=== PATIENT | male | born 1995 | race Caucasian/White ===

== ENCOUNTER 2023-03-13 13:15 | Outpatient (RCR) | payer OTHER, SELFPAY ==
--- NOTE | 2022-12-19 15:30 | OT.OP.EVAL ---
Visit Care Team Role Provider Type Akilah Calvo DO Attending Provider Non-Staff Primary Care Provider Referring Provider Specialty: Medical Address: [address] [place] [address], [id number] Email: Occupational Therapy Initial Evaluation OT Outpatient Adult Evaluation Start: 12/20/22 08:01 Freq: Status: Active Protocol: Document 12/19/22 15:30 AMS (Rec: 12/20/22 08:24 AMS [id number]) General Information - Adult Visit Start Time 12:15 Visit Stop Time 12:45 Total Visit Minutes 30 Treatment Setting Outpatient Care Note Type Initial Evaluation Referring Physician Akilah Calvo MD Precautions Bilateral wrist pain; exacerbated by long work hours on the computer & using telephone for conference calls Identification Confirmed Yes Identification Confirmed By Self Goals Residential Goals 1. Glenn will be modified independent with execution of home exercise program utilizing provided written and visual instructions from therapist. 2. Glenn will be able to verbally identify 2 to 3 different conservative methods of treatment for pain management of the distal UEs. 3. Glenn will be able to verbalize 100% of joint protection principles with referencing of provided materials as needed. Assessment/Plan Treatment Assessment Glenn is a 27 year-old right hand dominant male referred to outpatient OT secondary to bilateral wrist pain with symptoms that are exacerbated by long work hours on the computer & using telephone for conference calls. 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 Glenn is using heat to manage symptoms and is taking hourly breaks with school work tasks (3+ hours school work) that are completed on his laptop while seated on his couch or bed and /or at a workstation (that can be ergonomic equipped w/ gel pad or riser). Glenn does ROM stretches to maintain flexibility and is strengthening wrists via wrist ext and forearm supination/ pronation w/ DB. (-) use of splints. Medical history is significant for back pain, depression, headaches, hearing problems, neck pain, and neuropathy. QuickDASH UE Outcome Measure Score = 22.73; QuickDASH Work Module Score = 25.00; QuickDASH Sports/Performing Arts Module Score = 56.25 (he plays guitar and piano). He indicated 4 out of 10 on the pain scale relative to elbows --> hands distally, neck, upper back and 6 out of 10 mid back. On the hand/wrist Pain Assessment Grid, Glenn indicated 3 out of 10 relative to ulnar dorsal/volar surfaces of bilateral hands and dorsal/volar surfaces of bilateral wrists. 0-70 degrees active R wrist ext; 0-70 degrees active L wrist ext; 0- 75 degrees active R wrist flex ; 0-75 degrees active L wrist flex; 0-30 degrees active R UD ; 0-30 degrees active L UD; 0- [address]; 0-15 degrees active R UD. (-) signs of intrinsic tightness. (-) posturing of R or L little finger into abduction/(-) clawing of 4th or 5th digits; (+) flexion of bilateral thumbs w/ lateral pinch strength testing; report of mild change in sensation w/ B elbows in flexion, however, main symptoms are presenting distally. Denial of nerve conduction study; (-) sx not impacting sleep. Good strength w/ 5th digit adduction bilaterally; good add/abd strength of 4th and 5th digits bilaterally. 5/5 MMT of bilateral wrists w/ wrist flex , ext, RD, and UD. No c/o pain /discomfort w/ cheese cutter/pinch strength testing. 110# w/ R cheese cutter (within 1 SD below the mean) and 120# w/ L cheese cutter ( within 1 SD above the mean) w/ dynamometer II strength testing; 22.0# R lateral pinch (within 1 SD below the mean) vs 22.5# L lateral pinch ( within 1 SD below the mean); 23.0# R 3-jaw pinch (within 1 SD below the mean) and 19.0# L 3-jaw pinch (> 1 SD below the mean); 13.0# R tip pinch (> 1 SD below the mean) and 12.0# L tip pinch (> 1 SD below the mean). Patient presents with good strength of bilateral wrists in all directions; he does have some increased mobility ( hypermobility) which likely impacts the stability of the joints of the distal UEs/ wrists. He has slightly decreased strength bilaterally w/ pinch testing, although, no posturing of the 4th or 5th digits are observed. Pain is a factor that is impacting his ability to complete daily tasks in the work environment, as well as completion of school work tasks that are primarily completed on a laptop. He is receiving treatment at [facility] for his neck/back pain which likely impacts his posture and subsequent ability to position his distal UEs comfortably at work and/or for school. Outpatient OT is recommended to explore conservative measures to address pain/ discomfort, provide education re: joint protection/posture/ AE/and modifications, and to develop a HEP to address pinch weaknesses. Length of treatment (weeks) 4 Plan of Care Start Date 12/19/22 Plan of Care End Date 01/16/23 Treatment Frequency Once a Week Therapeutic Contents Active Range of Motion, Adaptive Equipment Education, Client Education,Functional Activities,Home Exercise Program,Joint Protection, Manual Therapy,Education, Neurodevelopment Treatment, Neuromuscular Re-Education, Self-Care,Modalities Modalities As Needed,As Prescribed Types of Modalities Ultrasound Additional Types of Modalities Ice/Contrast baths
--- NOTE | 2023-01-03 14:55 | OT.OP.TRT ---
Visit Care Team Role Provider Type Akilah Calvo DO Attending Provider Non-Staff Primary Care Provider Referring Provider Specialty: Medical Address: [address] [place] [address], [id number] Email: Occupational Therapy Treatment Note OT Outpatient Treatment Note - Adult Start: 12/20/22 08:01 Freq: Status: Active Protocol: Document 01/03/23 14:36 AMS (Rec: 01/03/23 14:55 AMS [id number]) OT Outpatient Adult Treatment Note Visit Information Visit Number 08/22 Plan of Care Dates 12/19/22 - 01/16/23 Insurance Information 12 OT visits auth Setting Treatment Setting Outpatient Care Visit Type Note Type Treatment Note General Information General Information Glenn is a 27 year-old right hand dominant male referred to outpatient OT secondary to bilateral wrist pain with symptoms that are exacerbated by long work hours on the computer & using telephone for conference calls. 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 Glenn is using heat to manage symptoms and is taking hourly breaks with school work tasks (3+ hours school work) that are completed on his laptop while seated on his couch or bed and /or at a workstation (that can be ergonomic equipped w/ gel pad or riser). Glenn does ROM stretches to maintain flexibility and is strengthening wrists via wrist ext and forearm supination/ pronation w/ DB. (-) use of splints. Medical history is significant for back pain, depression, headaches, hearing problems, neck pain, and neuropathy. - Subjective Identification Type Name Identification Reconciled With Medical Record Observations Pain reported ulnarly of bilateral wrists. - Objective Objective Measurements Please refer to below for progress towards meeting established OT goals: Nursing Home Goals 1. Glenn will be modified independent with execution of home exercise program utilizing provided written and visual instructions from therapist. 2. Glenn will be able to verbally identify 2 to 3 different conservative methods of treatment for pain management of the distal UEs. 3. Glenn will be able to verbalize 100% of joint protection principles with referencing of provided materials as needed. - - Assessment Assessment of Improvement Crepitus noted bilaterally R > L w/ frequent self-directed rolling of B wrists (R > L). Tightness noted Right volar radial compartment compared to L. Pain/discomfort with active weight bearing w/ circumduction in either direction R > L. Stabilizes right wrist w/ contralateral hand if able to do so w/ work tasks, e.g., CPR compressions. Performs push-ups with hands positioned in fists and/or utilizing dumbbells. Likely right radial carpal instability; increased available ROM in joints of the hand(s), thus, laxity may be a factor. Reported intermittent shooting pain proximal and distal secondary to application of US to address any inflammation to volar radial R wrist x 8 minutes, 20% duty cycle, 2.2 w /cm2. Given referring diagnoses may want to trial positioning of elbows in flexion for 30 to 60 seconds to determine if positioning reproduces symptoms. Limited by profession in ability to wear orthoses/splints/utilize kinesiotape. Will look to improve upon stability of wrist/tightness noted in volar radial compartment. Home Exercise Program 01/03/23 = stretching of radial volar compartment of wrist; passive wrist extension combined w/ elbow ext, forearm supination, and UD. passive UD w/ hand positioned flat on TT. rec hold of 20 to 30 sec per exercise. Stability exercise w/ ball forward <-> backwards, left <-> right w/ avoidance of circumduction given exacerbation of sx. - Plan Therapy Recommendations Continue with Current Program, Advance per Rehabilitation Protocol
--- NOTE | 2023-01-07 14:03 | OT.OP.TRT ---
Visit Care Team Role Provider Type Akilah Calvo DO Attending Provider Non-Staff Primary Care Provider Referring Provider Specialty: Medical Address: [address] [place] [address], [id number] Email: Occupational Therapy Treatment Note OT Outpatient Treatment Note - Adult Start: 12/20/22 08:01 Freq: Status: Active Protocol: Document 01/07/23 13:52 AMS (Rec: 01/07/23 14:03 AMS [id number]) OT Outpatient Adult Treatment Note Session Time Visit Start Time 08:30 Visit Stop Time 09:15 Total Visit Minutes 45 Visit Information Visit Number 09/22 Plan of Care Dates 12/19/22 - 01/16/23 Insurance Information 12 OT visits auth Setting Treatment Setting Outpatient Care Visit Type Note Type Treatment Note General Information General Information Glenn is a 27 year-old right hand dominant male referred to outpatient OT secondary to bilateral wrist pain with symptoms that are exacerbated by long work hours on the computer & using telephone for conference calls. 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 Glenn is using heat to manage symptoms and is taking hourly breaks with school work tasks (3+ hours school work) that are completed on his laptop while seated on his couch or bed and /or at a workstation (that can be ergonomic equipped w/ gel pad or riser). Glenn does ROM stretches to maintain flexibility and is strengthening wrists via wrist ext and forearm supination/ pronation w/ DB. (-) use of splints. Medical history is significant for back pain, depression, headaches, hearing problems, neck pain, and neuropathy. - Subjective Identification Type Name Identification Reconciled With Medical Record Observations Report of pain in distal UEs at night/when asleep; change in sensation occurs primarily in the 4th and 5th digits and approximately 2 to 3 inches proximal to ulnar side of wrist. - Objective Objective Measurements Please refer to below for progress towards meeting established OT goals: Alf Goals 1. Glenn will be modified independent with execution of home exercise program utilizing provided written and visual instructions from therapist. 2. Glenn will be able to verbally identify 2 to 3 different conservative methods of treatment for pain management of the distal UEs. 3. Glenn will be able to verbalize 100% of joint protection principles with referencing of provided materials as needed. - Exercises 3 Descriptor Supination <-> Pronation weighted ball catch and throw. R 2.2#. 2 x 10. Discomfort primarily reported w/ forearm in pronation. Toss and catch w/ wrist in extension. R 3.3# 2 x 10. 2 Descriptor Wrist extension w/ weighted spherical ball. R 3.3#. 2 x 10 . L 4.4#. 2 x 10. Proximal forearm supported. Wrist arc. Forearm pronation w / proximal forearm supported. R 3.3#. 2 x 10. L 4.4#. 2 x 10 . 1 Descriptor Angled trampoline. 3.3#. 2 x 10. Overhand throw. Cushioning occurs w/ impact/proximal compensation. Able to execute w/ L hand without symptoms. Angled trampoline. 2.2#. 2 x 10. Overhand throw. Mild discomfort. - Assessment Assessment of Improvement Crepitus noted bilaterally R > L w/ frequent self-directed rolling of B wrists (R > L). Pain/discomfort with active weight bearing w/ circumduction in either direction R > L. R radial carpal instability; increased available ROM in joints of the hand(s), thus, laxity may be a factor. Discomfort reported primarily w/ dynamic exercise w/ forearm in pronation w/ dynamic exercises. Report of changein sensation in primarily the 4th and 5th digits of the hand w/ proximal presentation 2 to 3 inches of the ulnar side of the wrist/ forearm. Change in sensation is impacting sleep. Reports that he will be getting botox in the neck . Will look to improve upon stability of wrist. Home Exercise Program 01/03/23 = stretching of radial volar compartment of wrist; passive wrist extension combined w/ elbow ext, forearm supination, and UD. passive UD w/ hand positioned flat on TT. rec hold of 20 to 30 sec per exercise. Stability exercise w/ ball forward <-> backwards, left <-> right w/ avoidance of circumduction given exacerbation of sx. - Plan Therapy Recommendations Continue with Current Program, Advance per Rehabilitation Protocol
--- NOTE | 2023-01-23 16:00 | OT.OPPN ---
Current Diagnoses Lesion of ulnar nerve, unspecified upper limb (01/23/23) Pain in right wrist (01/23/23) Pain in left wrist (01/23/23) Pain in arm, unspecified (01/23/23) Pain in unspecified hand (01/23/23) OT Progress Note OT Outpatient Treatment Note - Adult Start: 12/20/22 08:01 Freq: Status: Active Protocol: Document 01/23/23 16:00 AMS (Rec: 01/28/23 14:14 AMS [id number]) OT Outpatient Adult Treatment Note Session Time Visit Start Time 13:15 Visit Stop Time 14:00 Total Visit Minutes 45 Visit Information Visit Number 3 Plan of Care Dates 01/16/23 - 02/27/23 Insurance Information 12 OT visits auth Setting Treatment Setting Outpatient Care Visit Type Note Type Progress Note General Information General Information Glenn is a 27 year-old right hand dominant male referred to outpatient OT secondary to bilateral wrist pain with symptoms that are exacerbated by long work hours on the computer & using telephone for conference calls. 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 Glenn is using heat to manage symptoms and is taking hourly breaks with school work tasks (3+ hours school work) that are completed on his laptop while seated on his couch or bed and /or at a workstation (that can be ergonomic equipped w/ gel pad or riser). Glenn does ROM stretches to maintain flexibility and is strengthening wrists via wrist ext and forearm supination/ pronation w/ DB. (-) use of splints. Medical history is significant for back pain, depression, headaches, hearing problems, neck pain, and neuropathy. - Subjective Identification Type Name Identification Reconciled With Medical Record Observations No new complaints. Reports executing manual self- distraction bilaterally of both wrists and utilizing contralateral hand to stabilize other wrist. - Objective Objective Measurements Please refer to below for progress towards meeting established OT goals: Senior Care Goals 1. Glenn will be modified independent with execution of home exercise program utilizing provided written and visual instructions from therapist. 01/23/23 = 75% met 2. Glenn will be able to verbalize 100% of joint protection principles with referencing of provided materials as needed. 01/23/23 = 75% met GOALS MET Able to verbally identify 2 to 3 different conservative methods of treatment for pain management of the distal UEs. *MET 01/23/23; use of compensatory/modification techniques as well as use of available modalities in the home: use of ice; use of self -mobilization via distraction; distal UE PROM; report of contralateral wrist stabilization when required to exert force thru palm; - Exercises 3 Descriptor Supination <-> Pronation weighted ball catch and throw. R 2.2#. 2 x 10. Discomfort primarily reported w/ forearm in pronation. Toss and catch w/ wrist in extension. R 3.3# 2 x 10. 2 Descriptor Wrist extension w/ weighted spherical ball. R 4.4#. 2 x 10 . L 4.4#. 2 x 10. Proximal forearm supported. Wrist arc. Forearm pronation w / proximal forearm supported. R 4.4#. 2 x 10. L 4.4#. 2 x 10 . 1 Descriptor Angled trampoline. 4.4#. 2 x 10. Overhand throw. Cushioning occurs w/ impact/proximal compensation. Able to execute w/ L hand without symptoms. - Assessment Assessment of Improvement Patient has reported decline in pain/discomfort symptoms of wrists bilaterally; this could be attributed to reduction/participation in activities that are frequently aggravating to the wrists over the last couple of weeks per patient. Patient is executing distal UE PROM, utilizing self-mobs/wrist distraction techniques, and using contralateral hand to support wrist in which force is being exerted through. Patient is aware of importance of maintaining wrist in neutral w/ lifting and/or when executing push-ups (in which he frequently completes utilizing fists). Creptius is presenting bilaterally in wrists w/ observed active circumduction of wrists reported by patient to relieve stiffness and/or discomfort. Decreased stability of radial side of wrists noted (R > L) w / discomfort w/ proprioceptive exercises w/ shifting weight to radial side of the wrist w/ palm flat on unstable surface . Patient reportedly recently received botox to the neck and is being closely followed by . Patient is unable to wear orthotics and/or use kinesiotape to provide additional stability to the wrists based on profession. However, this may be an option when patient is not at work. Continued outpatient OT is recommended to determine if stability of wrist(s) can be obtained. Home Exercise Program 01/03/23 = stretching of radial volar compartment of wrist; passive wrist extension combined w/ elbow ext, forearm supination, and UD. passive UD w/ hand positioned flat on TT. rec hold of 20 to 30 sec per exercise. Stability exercise w/ ball forward <-> backwards, left <-> right w/ avoidance of circumduction given exacerbation of sx. - Plan Therapy Recommendations Continue with Current Program, Advance per Rehabilitation Protocol Comment 6 weeks Comment 1 x a week vs 1 x every other week Therapeutic Contents Active Range of Motion, Adaptive Equipment Education, Client Education,Cognitive Skills Development,Functional Activities,Home Exercise Program,Joint Protection, Manual Therapy,Education,Self- Care,Therapeutic Activities, Therapeutic Exercises, Modalities Modalities As Needed,As Prescribed Additional Types of Modalities Ultrasound/Heat/Ice/Contrast baths/Paraffin bath If you are in agreement with this Plan of Care, please return a signed and dated copy. I have reviewed this Plan of Care and certify that the skilled therapy services above are required to meet the patient?s needs. Physician Signature Date Printed Name and Credentials Clinical Instructor Signature Printed Name and Credentials
--- NOTE | 2023-02-06 15:45 | OT.OP.TRT ---
Visit Care Team Role Provider Type Akilah Calvo DO Attending Provider Non-Staff Primary Care Provider Referring Provider Specialty: Medical Address: [address] [place] [address], [id number] Email: Occupational Therapy Treatment Note OT Outpatient Treatment Note - Adult Start: 12/20/22 08:01 Freq: Status: Active Protocol: Document 02/06/23 16:00 AMS (Rec: 02/07/23 11:34 AMS [id number]) OT Outpatient Adult Treatment Note Session Time Visit Start Time 13:15 Visit Stop Time 14:00 Total Visit Minutes 45 Visit Information Visit Number 11/[id number] Plan of Care Dates 01/16/23 - 02/27/23 Insurance Information 12 OT visits auth Setting Treatment Setting Outpatient Care Visit Type Note Type Treatment Note General Information General Information Glenn is a 27 year-old right hand dominant male referred to outpatient OT secondary to bilateral wrist pain with symptoms that are exacerbated by long work hours on the computer & using telephone for conference calls. 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 Glenn is using heat to manage symptoms and is taking hourly breaks with school work tasks (3+ hours school work) that are completed on his laptop while seated on his couch or bed and /or at a workstation (that can be ergonomic equipped w/ gel pad or riser). Glenn does ROM stretches to maintain flexibility and is strengthening wrists via wrist ext and forearm supination/ pronation w/ DB. (-) use of splints. Medical history is significant for back pain, depression, headaches, hearing problems, neck pain, and neuropathy. - Subjective Identification Type Name Identification Reconciled With Medical Record Observations Completed Pain Assessment Grid ; at rest, indication of 2 out of 10 at rest, 3 out of 10 when using, and 5 out of 10 ( pain is at its worse) relative to distal UEs. - Objective Objective Measurements Please refer to below for progress towards meeting established OT goals: Group Home Goals 1. Glenn will be modified independent with execution of home exercise program utilizing provided written and visual instructions from therapist. 01/23/23 = 75% met 2. Glenn will be able to verbalize 100% of joint protection principles with referencing of provided materials as needed. 01/23/23 = 75% met GOALS MET Able to verbally identify 2 to 3 different conservative methods of treatment for pain management of the distal UEs. *MET 01/23/23; use of compensatory/modification techniques as well as use of available modalities in the home: use of ice; use of self -mobilization via distraction; distal UE PROM; report of contralateral wrist stabilization when required to exert force thru palm; - Exercises 5 Descriptor Dynamic stabilization. Use of dense foam square. R <- > L weight shift. 2 x 10. 4 Descriptor Blue flex bar. Alt wrist ext. 2 x 10. Blue flex bar positioned horizontally. Alt wrist ext. 2 x 10. Blue flex bar positioned vertically . Formation of 'U'. 2 x 10. Blue flex bar. Formation of upside down 'U'. 2 x 10. Blue flex bar. 3 Descriptor Bilateral supination <-> pronation weighted ball catch and throw. 4.4# weighted spherical 2 x 10. 2 Descriptor Bilateral wrist extension w/ weighted spherical ball. 4.4# weighted spherical ball 2 x 10 . Proximal forearm supported. Bilateral wrist ext. x 2 cycles. 7# DB attached to wood dowel w/ rope. Bilateral wrist flex. x 1 cycle. 1# DB attached to wood dowel w/ rope. N/A 02/06/23 Wrist arc. Forearm pronation w/ proximal forearm supported. R 4.4#. 2 x 10. L 4.4#. 2 x 10. 1 Descriptor Angled trampoline. 4.4#. 2 x 10. Overhand throw. Cushioning occurs w/ impact/proximal compensation. Able to execute w/ L hand without symptoms. - Assessment Assessment of Improvement Continued presentation of pain /discomfort of distal UEs; is currently seeking treatment for back. R crepitus > L radial side of wrist. Given decreased stability of radial side of wrists noted (R > L) w / discomfort w/ proprioceptive exercises w/ shifting weight to radial side of the wrist w/ palm flat on unstable surface transitioned to dense foam versus use of bosu/balance disk. Reported increased comfort w/ dense foam bilaterally, particularly of the R wrist. Upgraded resistance distal UE strengthening exercises based on interest/goal to return to rock climbing; this included incorporation of resisted wrist ext/flex w/ wooden dowel and 7# DB and blue flex bar. Overall, good session. Continued outpatient OT is recommended to determine if stability of wrist(s) can be obtained. Home Exercise Program 01/03/23 = stretching of radial volar compartment of wrist; passive wrist extension combined w/ elbow ext, forearm supination, and UD. passive UD w/ hand positioned flat on TT. rec hold of 20 to 30 sec per exercise. Stability exercise w/ ball forward <-> backwards, left <-> right w/ avoidance of circumduction given exacerbation of sx. - Plan Therapy Recommendations Continue with Current Program, Advance per Rehabilitation Protocol
--- NOTE | 2023-02-21 16:00 | OT.OP.TRT ---
Visit Care Team Role Provider Type Akilah Calvo DO Attending Provider Non-Staff Primary Care Provider Referring Provider Specialty: Medical Address: [address] [place] [address], [id number] Email: Occupational Therapy Treatment Note OT Outpatient Treatment Note - Adult Start: 12/20/22 08:01 Freq: Status: Active Protocol: Document 02/21/23 15:54 AMS (Rec: 02/21/23 16:00 AMS [id number]) OT Outpatient Adult Treatment Note Session Time Visit Start Time 13:15 Visit Stop Time 14:00 Total Visit Minutes 45 Visit Information Visit Number 12/20 Plan of Care Dates 01/16/23 - 02/27/23 Insurance Information 12 OT visits auth Setting Treatment Setting Outpatient Care Visit Type Note Type Treatment Note General Information General Information Glenn is a 27 year-old right hand dominant male referred to outpatient OT secondary to bilateral wrist pain with symptoms that are exacerbated by long work hours on the computer & using telephone for conference calls. 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 Glenn is using heat to manage symptoms and is taking hourly breaks with school work tasks (3+ hours school work) that are completed on his laptop while seated on his couch or bed and /or at a workstation (that can be ergonomic equipped w/ gel pad or riser). Glenn does ROM stretches to maintain flexibility and is strengthening wrists via wrist ext and forearm supination/ pronation w/ DB. (-) use of splints. Medical history is significant for back pain, depression, headaches, hearing problems, neck pain, and neuropathy. - Subjective Identification Type Name Identification Reconciled With Medical Record Observations Indication of pain/discomfort of 4 out of 10 on verbal pain scale; symptoms aggravated from chopping wood for prolonged duration. - Objective Objective Measurements Please refer to below for progress towards meeting established OT goals: Residential Goals 1. Glenn will be modified independent with execution of home exercise program utilizing provided written and visual instructions from therapist. 01/23/23 = 75% met 2. Glenn will be able to verbalize 100% of joint protection principles with referencing of provided materials as needed. 01/23/23 = 75% met GOALS MET Able to verbally identify 2 to 3 different conservative methods of treatment for pain management of the distal UEs. *MET 01/23/23; use of compensatory/modification techniques as well as use of available modalities in the home: use of ice; use of self -mobilization via distraction; distal UE PROM; report of contralateral wrist stabilization when required to exert force thru palm; - Exercises 5 Descriptor Dynamic stabilization. Use of dense foam square. R <- > L weight shift. Forwards <-> backwards weight shift. 2 x 10. Use of balance disk. Blue. R < -> L weight shift. Forwards <- > backwards weight shift. 2 x 10. 4 Descriptor Blue flex bar. Alt wrist ext. 2 x 10. Blue flex bar positioned horizontally. Alt wrist ext. 2 x 10. Blue flex bar positioned vertically . Formation of 'U'. 2 x 10. Blue flex bar. Formation of upside down 'U'. 2 x 10. Blue flex bar. 3 Descriptor Bilateral supination <-> pronation weighted ball catch and throw. 4.4# weighted spherical 2 x 10. 2 Descriptor Bilateral wrist ext/flex. x 3 cycles. 7# DB attached to wood dowel w/ rope. Bilateral wrist ext/flex. x 3 cycles. 5# DB attached to wood dowel w/ rope w/ bilateral elbow ext. N/A 02/21/23 Bilateral wrist extension w/ weighted spherical ball. 4.4# weighted spherical ball 2 x 10. Proximal forearm supported. N/A 02/06/23 Wrist arc. Forearm pronation w/ proximal forearm supported. R 4.4#. 2 x 10. L 4.4#. 2 x 10. - Assessment Assessment of Improvement Continued presentation of pain /discomfort of distal UEs. R crepitus > L radial side of wrist. Given decreased stability of radial side of wrists noted (R > L) w/ discomfort w/ proprioceptive exercises w/ shifting weight to radial side of the wrist w/ palm flat on unstable surface use of dense foam and blue balance disk. Upgraded dowel exercise wrist ext/flex exercise to bilateral elbows extended. Upgraded dynamic balance/stabilization to balance disk versus limited to dense foam. Overall, good session. Continued outpatient OT is recommended to determine if stability of wrist(s) can be obtained. Home Exercise Program 01/03/23 = stretching of radial volar compartment of wrist; passive wrist extension combined w/ elbow ext, forearm supination, and UD. passive UD w/ hand positioned flat on TT. rec hold of 20 to 30 sec per exercise. Stability exercise w/ ball forward <-> backwards, left <-> right w/ avoidance of circumduction given exacerbation of sx. - Plan Therapy Recommendations Continue with Current Program, Advance per Rehabilitation Protocol
--- NOTE | 2023-02-24 16:00 | OT.OPPN ---
Current Diagnoses Lesion of ulnar nerve, unspecified upper limb (02/24/23) Pain in right wrist (02/24/23) Pain in left wrist (02/24/23) Pain in arm, unspecified (02/24/23) Pain in unspecified hand (02/24/23) OT Progress Note OT Outpatient Treatment Note - Adult Start: 12/20/22 08:01 Freq: Status: Active Protocol: Document 02/24/23 16:00 AMS (Rec: 02/25/23 10:04 AMS [id number]) OT Outpatient Adult Treatment Note Session Time Visit Start Time 13:15 Visit Stop Time 14:00 Visit Information Visit Number 01/20 Plan of Care Dates 02/24/23 - 04/07/23 Insurance Information 12 OT visits auth Setting Treatment Setting Outpatient Care Visit Type Note Type Treatment Note General Information General Information Glenn is a 27 year-old right hand dominant male referred to outpatient OT secondary to bilateral wrist pain with symptoms that are exacerbated by long work hours on the computer & using telephone for conference calls. 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 Glenn is using heat to manage symptoms and is taking hourly breaks with school work tasks (3+ hours school work) that are completed on his laptop while seated on his couch or bed and /or at a workstation (that can be ergonomic equipped w/ gel pad or riser). Glenn does ROM stretches to maintain flexibility and is strengthening wrists via wrist ext and forearm supination/ pronation w/ DB. (-) use of splints. Medical history is significant for back pain, depression, headaches, hearing problems, neck pain, and neuropathy. - Subjective Identification Type Name Identification Reconciled With Medical Record Observations Reported pain/discomfort of 2 out of 10 at rest and 3 out of 10 when active relative to bilateral wrist pain R > L. Glenn reports - Objective Objective Measurements Please refer to below for progress towards meeting established OT goals: Groundskeeper Supervisor Goals 1. Glenn will be modified independent with execution of home exercise program utilizing provided written and visual instructions from therapist. 02/24/23 = 75% met 2. Glenn will be able to verbalize 100% of joint protection principles with referencing of provided materials as needed. 02/24/23 = 75% met GOALS MET Able to verbally identify 2 to 3 different conservative methods of treatment for pain management of the distal UEs. *MET 01/23/23; use of compensatory/modification techniques as well as use of available modalities in the home: use of ice; use of self -mobilization via distraction; distal UE PROM; report of contralateral wrist stabilization when required to exert force thru palm; - Exercises 5 Descriptor Dynamic stabilization. Use of dense foam square. R <- > L weight shift. Forwards <-> backwards weight shift. 2 x 10. Use of balance disk. Blue. R < -> L weight shift. Forwards <- > backwards weight shift. 2 x 10. Modified walk-outs/plank. 1 x 10. Modification given B LE hamstring tightness. 4 Descriptor Blue flex bar. Alt wrist ext. 2 x 10. Blue flex bar positioned horizontally. Alt wrist flex. 2 x 10. Blue flex bar positioned vertically . Formation of 'U'. 2 x 10. Blue flex bar. Formation of upside down 'U'. 2 x 10. Blue flex bar. 3 Descriptor Bilateral supination <-> pronation weighted ball catch and throw. 4.4# weighted spherical. 2 x 10. Bilateral weighted spherical ball catch. 3 x 10. 2 Descriptor Bilateral wrist ext/flex. x 3 cycles. 7# DB attached to wood dowel w/ rope. Bilateral wrist ext/flex. x 3 cycles. 5# DB attached to wood dowel w/ rope w/ bilateral elbow ext. N/A 02/21/23 Bilateral wrist extension w/ weighted spherical ball. 4.4# weighted spherical ball 2 x 10. Proximal forearm supported. N/A 02/06/23 Wrist arc. Forearm pronation w/ proximal forearm supported. R 4.4#. 2 x 10. L 4.4#. 2 x 10. - Assessment Assessment of Improvement Glenn has demonstrated some progress w/ outpatient OT; slight reduction in pain/ discomfort of bilateral distal UEs, advancement of distal B UE strengthening exercises and dynamic wrist stabilization exercises. Glenn demonstrates good awareness of positioning of bilateral wrists in neutral w/ management of weighted objects ; although, he requires cueing to support proximal bilateral UE stabilization w/ distal wrist strengthening w/ elbows in 90 degrees flexion and cueing to weight bear thru bilateral palms to avoid positioning of thumbs in less stable position w/ active weight bearing. Continued rolling of wrists noted when discomfort present w/ R crepitus > L wrist. Continued outpatient OT is recommended to determine if stability of wrist(s) can be obtained. Home Exercise Program 01/03/23 = stretching of radial volar compartment of wrist; passive wrist extension combined w/ elbow ext, forearm supination, and UD. passive UD w/ hand positioned flat on TT. rec hold of 20 to 30 sec per exercise. Stability exercise w/ ball forward <-> backwards, left <-> right w/ avoidance of circumduction given exacerbation of sx. - Plan Therapy Recommendations Continue with Current Program, Advance per Rehabilitation Protocol Comment 6 weeks Frequency of Treatment Once a Week Therapeutic Contents Active Range of Motion, Adaptive Equipment Education, Client Education,Cognitive Skills Development,Functional Activities,Home Exercise Program,Joint Protection, Manual Therapy,Education,Self- Care,Stretching/Flexibility Activities,Therapeutic Activities,Therapeutic Exercises,Modalities Additional Areas of Treatment US/Heat/Ice/Contrast baths/ Paraffin If you are in agreement with this Plan of Care, please return a signed and dated copy. I have reviewed this Plan of Care and certify that the skilled therapy services above are required to meet the patient?s needs. Physician Signature Date Printed Name and Credentials Clinical Instructor Signature Printed Name and Credentials
--- NOTE | 2023-03-13 14:46 | OT.OP.TRT ---
Visit Care Team Role Provider Type Akilah Calvo DO Attending Provider Non-Staff Primary Care Provider Referring Provider Specialty: Medical Address: [address] [place] [address], [id number] Email: Occupational Therapy Treatment Note OT Outpatient Treatment Note - Adult Start: 12/20/22 08:01 Freq: Status: Active Protocol: Document 03/13/23 14:40 AMS (Rec: 03/13/23 14:46 AMS [id number]) OT Outpatient Adult Treatment Note Session Time Visit Start Time 13:15 Visit Stop Time 13:45 Total Visit Minutes 30 Visit Information Visit Number 02/19 Plan of Care Dates 02/24/23 - 04/07/23 Insurance Information 12 OT visits auth Setting Treatment Setting Outpatient Care Visit Type Note Type Treatment Note General Information General Information Glenn is a 27 year-old right hand dominant male referred to outpatient OT secondary to bilateral wrist pain with symptoms that are exacerbated by long work hours on the computer & using telephone for conference calls. 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 Glenn is using heat to manage symptoms and is taking hourly breaks with school work tasks (3+ hours school work) that are completed on his laptop while seated on his couch or bed and /or at a workstation (that can be ergonomic equipped w/ gel pad or riser). Glenn does ROM stretches to maintain flexibility and is strengthening wrists via wrist ext and forearm supination/ pronation w/ DB. (-) use of splints. Medical history is significant for back pain, depression, headaches, hearing problems, neck pain, and neuropathy. - - Objective Objective Measurements Please refer to below for progress towards meeting established OT goals: Halfway Goals 1. Glenn will be modified independent with execution of home exercise program utilizing provided written and visual instructions from therapist. 02/24/23 = 75% met 2. Glenn will be able to verbalize 100% of joint protection principles with referencing of provided materials as needed. 02/24/23 = 75% met GOALS MET Able to verbally identify 2 to 3 different conservative methods of treatment for pain management of the distal UEs. *MET 01/23/23; use of compensatory/modification techniques as well as use of available modalities in the home: use of ice; use of self -mobilization via distraction; distal UE PROM; report of contralateral wrist stabilization when required to exert force thru palm; - Exercises 6 Descriptor Bilateral wrist strengthening. 2.2# spherical weighted ball. R wrist ext. R wrist flex. R wrist RD. 3 x 10. 2.2# spherical weighted ball. L wrist ext. L wrist flex. L wrist RD. 3 x 10. 2.2# spherical weighted ball. UD <-> RD. Wrist arcs. 3 x 10. 2.2# spherical weighted ball. L Forearm supination/pronation . 3 x 10. TB#4 B Wrist UD. Use of loop. 3 x 10. 5 Descriptor Blue balance disk. L only. 3 x 10 CW & CCW. L <-> R 1 x 10. Dynamic stabilization. Use of dense foam square. R <- > L weight shift. Forwards <-> backwards weight shift. 2 x 10. Use of balance disk. Blue. R < -> L weight shift. Forwards <- > backwards weight shift. 2 x 10. Modified walk-outs/plank. 1 x 10. Modification given B LE hamstring tightness. 4 Descriptor Blue flex bar. Alt wrist ext. 2 x 10. Blue flex bar positioned horizontally. Alt wrist flex. 2 x 10. Blue flex bar positioned vertically . Formation of 'U'. 2 x 10. Blue flex bar. Formation of upside down 'U'. 2 x 10. Blue flex bar. 3 Descriptor Bilateral supination <-> pronation weighted ball catch and throw. 4.4# weighted spherical. 2 x 10. Bilateral weighted spherical ball catch. 3 x 10. - Assessment Assessment of Improvement Treatment session shortened d/ t R neck/UE pain/discomfort. Report of numbness impacting keyboarding w/ L hand. Observed to guarding R UE into sh elevation and R sh adduction. Provision of towel to support proximal stability w/ also noted reduction in resistance w/ wrist strengthening exercises and avoidance of R wrist stabilization exercises. Did not tolerate elbow in flexion 90 degrees w/ modified wrist stabilization w/ utilization of edge of TT. Glenn reported that he did not go into work today as well and is following up w/ his PCP. Treatment session shortened d/ t discomfort. Glenn was in agreement. Continued outpatient OT is recommended to determine if stability of wrist(s) can be obtained. - Plan Therapy Recommendations Continue with Current Program, Advance per Rehabilitation Protocol
--- NOTE | 2023-03-19 15:13 | OT.OP.DC ---
Visit Care Team Role Provider Type Akilah Calvo DO Attending Provider Non-Staff Primary Care Provider Referring Provider Address: [address] [place] [address], [id number] Email: OT Outpatient OT Outpatient Adult Evaluation Start: 12/20/22 08:01 Freq: Status: Active Protocol: Document 12/19/22 15:30 AMS (Rec: 12/20/22 08:24 AMS [id number]) General Information - Adult Session Time Visit Start Time 12:15 Visit Stop Time 12:45 Total Visit Minutes 30 Setting Treatment Setting Outpatient Care Visit Type Note Type Initial Evaluation Referral Referring Physician Akilah Calvo MD Precautions Bilateral wrist pain; exacerbated by long work hours on the computer & using telephone for conference calls Identification Identification Confirmed Yes Identification Confirmed By Self Goals Residential Goals Residential Goals 1. Glenn will be modified independent with execution of home exercise program utilizing provided written and visual instructions from therapist. 2. Glenn will be able to verbally identify 2 to 3 different conservative methods of treatment for pain management of the distal UEs. 3. Glenn will be able to verbalize 100% of joint protection principles with referencing of provided materials as needed. Assessment/Plan Assessment Treatment Assessment Glenn is a 27 year-old right hand dominant male referred to outpatient OT secondary to bilateral wrist pain with symptoms that are exacerbated by long work hours on the computer & using telephone for conference calls. 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 Glenn is using heat to manage symptoms and is taking hourly breaks with school work tasks (3+ hours school work) that are completed on his laptop while seated on his couch or bed and /or at a workstation (that can be ergonomic equipped w/ gel pad or riser). Glenn does ROM stretches to maintain flexibility and is strengthening wrists via wrist ext and forearm supination/ pronation w/ DB. (-) use of splints. Medical history is significant for back pain, depression, headaches, hearing problems, neck pain, and neuropathy. QuickDASH UE Outcome Measure Score = 22.73; QuickDASH Work Module Score = 25.00; QuickDASH Sports/Performing Arts Module Score = 56.25 (he plays guitar and piano). He indicated 4 out of 10 on the pain scale relative to elbows --> hands distally, neck, upper back and 6 out of 10 mid back. On the hand/wrist Pain Assessment Grid, Glenn indicated 3 out of 10 relative to ulnar dorsal/volar surfaces of bilateral hands and dorsal/volar surfaces of bilateral wrists. 0-70 degrees active R wrist ext; 0-70 degrees active L wrist ext; 0- 75 degrees active R wrist flex ; 0-75 degrees active L wrist flex; 0-30 degrees active R UD ; 0-30 degrees active L UD; 0- [address]; 0-15 degrees active R UD. (-) signs of intrinsic tightness. (-) posturing of R or L little finger into abduction/(-) clawing of 4th or 5th digits; (+) flexion of bilateral thumbs w/ lateral pinch strength testing; report of mild change in sensation w/ B elbows in flexion, however, main symptoms are presenting distally. Denial of nerve conduction study; (-) sx not impacting sleep. Good strength w/ 5th digit adduction bilaterally; good add/abd strength of 4th and 5th digits bilaterally. 5/5 MMT of bilateral wrists w/ wrist flex , ext, RD, and UD. No c/o pain /discomfort w/ weight and test bar clerk/pinch strength testing. 110# w/ R weight and test bar clerk (within 1 SD below the mean) and 120# w/ L weight and test bar clerk ( within 1 SD above the mean) w/ dynamometer II strength testing; 22.0# R lateral pinch (within 1 SD below the mean) vs 22.5# L lateral pinch ( within 1 SD below the mean); 23.0# R 3-jaw pinch (within 1 SD below the mean) and 19.0# L 3-jaw pinch (> 1 SD below the mean); 13.0# R tip pinch (> 1 SD below the mean) and 12.0# L tip pinch (> 1 SD below the mean). Patient presents with good strength of bilateral wrists in all directions; he does have some increased mobility ( hypermobility) which likely impacts the stability of the joints of the distal UEs/ wrists. He has slightly decreased strength bilaterally w/ pinch testing, although, no posturing of the 4th or 5th digits are observed. Pain is a factor that is impacting his ability to complete daily tasks in the work environment, as well as completion of school work tasks that are primarily completed on a laptop. He is receiving treatment at [facility] for his neck/back pain which likely impacts his posture and subsequent ability to position his distal UEs comfortably at work and/or for school. Outpatient OT is recommended to explore conservative measures to address pain/ discomfort, provide education re: joint protection/posture/ AE/and modifications, and to develop a HEP to address pinch weaknesses. Plan Length of treatment (weeks) 4 Plan of Care Start Date 12/19/22 Plan of Care End Date 01/16/23 Treatment Frequency Once a Week Therapeutic Contents Active Range of Motion, Adaptive Equipment Education, Client Education,Functional Activities,Home Exercise Program,Joint Protection, Manual Therapy,Education, Neurodevelopment Treatment, Neuromuscular Re-Education, Self-Care,Modalities Modalities As Needed,As Prescribed Types of Modalities Ultrasound Additional Types of Modalities Ice/Contrast baths Functional Wrist/Hand Scan Hand Side Sensory Assessment Sensory Profile2 OT Outpatient Treatment Note - Adult Start: 12/20/22 08:01 Freq: Status: Active Protocol: Document 03/19/23 15:08 [facility] (Rec: 03/19/23 15:13 [facility] [id number]) OT Outpatient Adult Treatment Note Visit Information Visit Number 02/19 Plan of Care Dates 02/24/23 - 04/07/23 Insurance Information 12 OT visits auth Setting Treatment Setting Outpatient Care Visit Type Note Type Discharge Summary - Subjective Observations Spoke to patient on telephone; recommend d/c at this time from outpatient OT w/ return to PCP for further diagnostic testing/imaging given continued neck and back pain/ discomfort, change in distal UE sensation, which is ultimately impacting Glenn's day-to-day life in various settings (including, work/ school). - Objective Objective Measurements Please refer to below for progress towards meeting established OT goals: Health Education Aide Goals D/C 03/19/23 1. Glenn will be able to verbalize 100% of joint protection principles with referencing of provided materials as needed. 02/24/23 = 75% met GOALS MET Able to verbally identify 2 to 3 different conservative methods of treatment for pain management of the distal UEs. *MET 01/23/23; use of compensatory/modification techniques as well as use of available modalities in the home: use of ice; use of self -mobilization via distraction; distal UE PROM; report of contralateral wrist stabilization when required to exert force thru palm; Glenn will be modified independent with execution of home exercise program utilizing provided written and visual instructions from therapist. Mod I w/ HEP est at time of last treatment session - - Assessment Assessment of Improvement Spoke to patient on telephone; recommend d/c at this time from outpatient OT w/ return to PCP for further diagnostic testing/imaging given continued neck and back pain/ discomfort, change in distal UE sensation, which is ultimately impacting Glenn's day-to-day life in various settings (including, work/ school). - Plan Therapy Recommendations Discharge from Occupational Therapy Additional Therapy Recommendations Rec returning to PCP Suggested Referrals Primary Care Physician
== END 2023-03-21 10:58 | disposition home or self-care (01) ==
LOC: OT 13:15
DX: G56.20 Lesion of ulnar nerve, unspecified upper limb (principal); M79.603 Pain in arm, unspecified; M25.532 Pain in left wrist; M25.531 Pain in right wrist; M79.643 Pain in unspecified hand
CPT/HCPCS: 97035; 97110; 97140; 97165; 97530

== ENCOUNTER → 2023-05-15 12:43 | Outpatient (CLI) | payer OTHER, SELFPAY | DX: M25.531 Pain in right wrist (principal); M25.532 Pain in left wrist | CPT/HCPCS: 95886; 95912 ==

== ENCOUNTER → 2023-06-19 06:42 | Outpatient (CLI) | payer OTHER, SELFPAY ==
--- NOTE | 2023-06-19 | DI.MRI.S_ITS ---
PROCEDURE: MR CERVICAL SPINE WO/W CON INDICATIONS: Anesthesia of skin TECHNIQUE: Noncontrast sagittal T1 spin echo and T2 fast spin echo, sagittal STIR, sagittal PD fast spin echo, foraminal oblique sagittal T2 fast spin echo, axial gradient echo or T2 fast spin echo through the cervical spine. After the administration of contrast, sagittal and axial T1 spin echo with fat saturation through the cervical spine. COMPARISON: None. FINDINGS: Image quality: Diagnostic Alignment and curvature: There is normal bony alignment. Marrow: Marrow demonstrates normal overall signal. Spinal cord: Visualized spinal cord is normal in size, without white matter lesions. No suspicious intramedullary enhancement. No cerebellar tonsillar herniation. Paraspinous soft tissues: No paravertebral masses or suspicious enhancement. C2-C3: Normal appearance. C3-C4: Normal appearance. C4-C5: No significant abnormality is seen. C5-C6: Mild loss of disc height is seen. Loss of disc signal is seen. Moderate disc osteophyte complex is seen, which is eccentric to the right, with a right foraminal disc osteophyte protrusion, as on series 4 images 26 and 27. Mild facet joint hypertrophy is seen. There is at least moderate bilateral neural foraminal narrowing seen, right worse than left. Mild central canal narrowing is seen. C6-C7: The disc height and disk signal are well-preserved. A mild degree of generalized disc osteophyte complex is seen. Mild facet joint hypertrophy is seen. Mild bilateral neural foraminal narrowing is seen. No central canal narrowing is seen. C7-T1: No significant abnormality is seen. IMPRESSION: No suspicious T2 hyperintense white matter lesions can be seen within the cervical cord. No abnormal enhancement is seen. Cervical spine degenerative changes are seen, which are worst at the C5-C6 level. Dictated by: Bud Hamilton M.D. on 06/19/2023 at 11:30 Approved by: Bud Hamilton M.D. on 06/19/2023 at 11:33
== END ==
DX: R20.0 Anesthesia of skin (principal); M47.812 Spondylosis without myelopathy or radiculopathy, cervical region
CPT/HCPCS: 72156; A9579

== ENCOUNTER → 2024-12-26 10:30 | Outpatient (CLI) | payer OTHER, SELFPAY ==
--- NOTE | 2024-12-26 | DI.MRI.S_ITS ---
PROCEDURE: MR KNEE RT WO CON INDICATIONS: Chronic patellofemoral pain TECHNIQUE: Noncontrast sagittal PD fast spin echo and T2 fast spin echo with fat saturation, sagittal 3-D FLASH with fat saturation; coronal T1 spin echo and PD fast spin echo with fat saturation, and axial PD fast spin echo with fat saturation through the knee. COMPARISON: None. FINDINGS: Image quality: Excellent. Anterior structures: Possible patella [place], the ratio of the length of the patellar ligament, 6.8 cm to the craniocaudad dimension of the patella 4.1 cm is approximately 1.65, normally 1.3-1.5. On the axial images the patella appears mildly subluxed laterally in relation to the femoral groove, both of which appear somewhat flattened which may be an indication of femoral trochlear dysplasia. Menisci: The medial and lateral menisci demonstrate normal morphology and internal signal. Cruciate ligaments: Mild increased T2 weighted signal in the mid and distal aspect of the anterior cruciate ligament but with intact fibers without complete tear likely injury/strain. Posterior cruciate ligament is normal. Medial structures: The medial collateral ligament appears intact. The semimembranosus tendon insertion is intact. Visualized portions of the pes anserinus tendons appear normal. Lateral structures: The lateral collateral ligament, long and short heads of the biceps femoris tendon appear intact. The popliteus tendon appears normal; the popliteofibular ligament appears intact. The posterosuperior and anteroinferior popliteomeniscal fascicles appear intact. The arcuate and fabellofibular ligaments appear intact, on either side of the lateral inferior geniculate artery. Iliotibial band appears normal. Bones and cartilage: Mild chondromalacia patella with a 1 mm possible defect of in the central aspect of the patella series 9, image 12. No bone marrow contusions or fractures. Mild diffuse cartilaginous thinning in the medial compartment. Lateral compartment cartilage is normal. Joint space: Trace knee joint effusion. No popliteal cyst. 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 Trace knee joint effusion. Mild injury/strain anterior cruciate ligament some of which may be chronic. Mild chondromalacia patella Dictated by: Marques John M.D. on 12/27/2024 at 10:32 Approved by: Marques John M.D. on 12/27/2024 at 11:05
== END ==
PROVIDERS: Referring Provider Student in an Organized Health Care Education/Training Program; Visit Provider Student in an Organized Health Care Education/Training Program
DX: S83.511A Sprain of anterior cruciate ligament of right knee, initial encounter (principal); M22.41 Chondromalacia patellae, right knee; X58.XXXA Exposure to other specified factors, initial encounter
CPT/HCPCS: 73721

== ENCOUNTER → 2024-12-30 13:26 | Outpatient (CLI) | payer OTHER, SELFPAY ==
--- NOTE | 2024-12-30 13:27 | DI.MRI.S_ITS ---
PROCEDURE: MR KNEE LT WO CON INDICATIONS: R/O STRUCTURAL ABNORMALITIES, PATELLOFEM PAIN TECHNIQUE: Noncontrast sagittal PD fast spin echo and T2 fast spin echo with fat saturation, sagittal 3-D FLASH with fat saturation; coronal T1 spin echo and PD fast spin echo with fat saturation, and axial PD fast spin echo with fat saturation through the knee. COMPARISON: [facility], MR, MR KNEE RT WO CON, 12/26/2024, 11:05. FINDINGS: Image quality: Excellent. 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 Mild edema at the lateral patellar retinaculum its insertion on the patella and in the infrapatellar fat pad. Borderline patella Anna configuration the ratio of the length of the patellar ligament, approximately 6.3 cm in craniocaudad dimension to the patella 4.3 cm is approximately 1.5 normally 1.3-1.5. No bone marrow contusions or fractures. The cartilage of the medial and lateral femorotibial compartments, as well as the patellofemoral compartment, appears normal in thickness. Menisci: The medial and lateral menisci demonstrate normal morphology and internal signal. The meniscal root ligaments appear intact. Cruciate ligaments: Mild increased T2 weighted signal and thinning of the anterior cruciate ligament commonly mild injury/strain but with intact fibers without complete tear. Posterior cruciate ligament is normal. Medial structures: The medial collateral ligament appears intact. The semimembranosus tendon insertion is intact. Visualized portions of the pes anserinus tendons appear normal. No abnormal bursal fluid. Lateral structures: The lateral collateral ligament, long and short heads of the biceps femoris tendon appear intact. The popliteus tendon appears normal; the popliteofibular ligament appears intact. The posterosuperior and anteroinferior popliteomeniscal fascicles appear intact. The arcuate and fabellofibular ligaments appear intact, on either side of the lateral inferior geniculate artery. Iliotibial band appears normal. Anterior structures: The quadriceps and patellar tendons appear intact. Joint space: There is physiologic knee joint fluid. No popliteal cyst. IMPRESSION: Liua-ow-hxnyfiqy edema in the infrapatellar fat pad and within and adjacent to the lateral patellar retinaculum suggests injury/strain. 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 Dictated by: Marques John M.D. on 12/31/2024 at 11:12 Approved by: Marques John M.D. on 12/31/2024 at 11:55
== END ==
PROVIDERS: Referring Provider Student in an Organized Health Care Education/Training Program; Visit Provider Student in an Organized Health Care Education/Training Program
DX: M22.2X9 Patellofemoral disorders, unspecified knee (principal); R60.0 Localized edema
CPT/HCPCS: 73721

== ENCOUNTER 2025-05-12 06:30 | Day surgery (SDC) | payer OTHER, SELFPAY ==
--- NOTE | 2025-05-12 | PATH_ITS ---
[facility] Accession Number: [id number] No. of containers..02 Tissue . 01 Material submitted: . PART A: duodenum - DUODENUM PART B: gastrointestinal site - ANTRUM . 01 Diagnosis: A. DUODENUM: Duodenal mucosa with no diagnostic abnormality. Negative for active inflammation, features of sprue, dysplasia, or malignancy. . B. ANTRUM: Gastric mucosa with mild chronic inflammation. No Helicobacter pylori organisms identified on immunohistochemical evaluation. No intestinal metaplasia, dysplasia, or malignancy. [facility] 05/23/2025 1022 Local . 01 Electronically signed: . Debra Driscoll MD, Pathologist NPI- [id number] . 01 Gross description: . Received are two fromalin-filled containers both labeled with the patient's anme. . A. In a container labeled duodenum, is one fragment of davila, soft tissue which measures 0.3 x 0.2 x 0.2 cm. The specimen is totally submitted in cassette A1. B. In a container labeled antrum, are two fragments of davila, soft tissue which range in size from 0.3 x 0.3 x 0.3 cm to 0.4 x 0.2 x 0.2 cm. All fragments are totally submitted in cassette B1. (DC:[id number]) /[facility] 05/19/2025 0702 Local . 01 Microscopic: . B. An immunohistochemical stain was performed to evaluate for Helicobacter organisms and is negative. The control stain showed appropriate reactivity. . . * This test was developed and the performance characteristics were validated by [employer]. It has not been cleared or approved by the U.S. Food and Drug Administration. . 01 Pathologist provided ICD-10: K29.70 . 01 CPT . 505526, 426889, G23660 Specimen Comment: A courtesy copy of this report has been sent to [phone] Performed at: [address] [facility] [address], [place], [place] [id number] MD Juan Condon MD Phone: [phone]
[2025-05-12 07:19] VITALS: BP 117/73; PULSE 66; RESP 14; O2SAT 100
[2025-05-12] MEDS: LACTATED RINGERS 1,000 ML 42 ML IV (07:26)
--- NOTE | 2025-05-12 07:33 | PM.HP.IH.1 ---
History of Present Illness History of Present Illness Date Patient Seen: 05/12/25 Time Patient Seen: 07:33 Chief complaint: EGD & Colonoscopy w/poss bx Narrative: Jordan is a 29-year-old man with gastroesophageal reflux disease and hematochezia. See the office note from March for details. COUNTS INCLUDE 234 BEDS AT THE [facility] Social History Smoking Status: Never smoker alcohol intake: never Meds Home Medications and Allergies Home Medications ?Medication ?Instructions ?Recorded ?Confirmed ?Type atogepant 60 mg tablet (Qulipta) 60 mg PO DAILY 03/29/25 04/14/25 History meloxicam 15 mg tablet 15 mg PO DAILY 03/29/25 04/14/25 History pantoprazole 40 mg tablet,delayed 40 mg PO DAILY 03/29/25 04/14/25 History release propranolol 60 mg capsule,24 60 mg PO DAILY 03/29/25 04/14/25 History hr,extended release rizatriptan 10 mg tablet mg PO 03/29/25 04/14/25 History tamsulosin 0.4 mg capsule 0.4 mg PO DAILY #90 caps 04/14/25 04/14/25 Rx peg 3350-electrolytes 236 240 ml PO Q10M #4,000 mL 05/10/25 Rx gram-22.74 gram-6.74 gram-5.86 gram solution (Golytely) Allergies Allergy/AdvReac Type Severity Reaction Status Date / Time No Known Drug Allergies Allergy Verified 04/14/25 14:56 Exam Vital Signs (past 8 hours): - 05/12/25 07:19 Pulse Rate 66 Respiratory Rate 14 Blood Pressure 117/73 Pulse Oximetry 100 Oxygen Delivery Method Room Air Oxygen Delivery Method Room Air Const General: healthy appearing Assessment & Plan Assessment and plan (1) Rectal bleeding: Status: Acute (2) Acid reflux: Qualifiers: Esophagitis presence: without esophagitis Qualified Code(s): K21.9 - Gastro-esophageal reflux disease without esophagitis Status: Acute Plan EGD and colonoscopy Time-Based Coding :: [TOTAL MINUTES] spent with patient and on the chart (including review of chart, obtaining history, exam, reviewing outside data, placing orders, documenting exam and treatment plan, and counseling patient) on [DATE]. 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
[2025-05-12 07:56] VITALS: BP 110/63; PULSE 75; RESP 14; TEMP 36.1; O2SAT 97
--- NOTE | 2025-05-12 07:56 | PM.OP.EC ---
Operative Date/Time/Diagnoses Date of procedure: 05/12/25 Time of procedure: 07:56 Pre-op diagnosis: GERD and hematochezia Post-op diagnosis: same Procedure & Clinicians Study performed: EGD and colonoscopy Same procedure(s) as scheduled: Yes Surgeon: Bruce Guthrie Anesthesia Type: MAC +/- Procedure Notes Procedure in detail: Surgeon: Bruce Guthrie MD Anesthesia: Shelbie Elizabeth CRNA Procedure in detail: A timeout was performed. A bite blocked was placed and monitors were attached to the patient. The patient was positioned in the left lateral decubitus position. Sedation was administered. Once the patient was sedated the endoscope was inserted through the bite block and passed through the esophagus and stomach and into the duodenum. No gross abnormalities were identified. Random biopsies were taken from the duodenal mucosa with cold forceps. We then withdrew the scope into the stomach. No gross abnormalities were identified. Random biopsies were taken from the antral mucosa with cold forceps. The endoscope was retroflexed and no hiatal hernia was seen. The endoscope was straightned and withdrawn into the esophagus. No other abnormalities were seen. EGD findings: Grossly normal EGD Next we repositioned the patient for a colonoscopy. A digital rectal exam was performed and was normal. The colonoscope was inserted and advanced into the rectum. The prep was inadequate to safely continue. The colonoscopy was aborted. Colonoscopy findings: Inadequate prep Total procedural EBL: 2 mL Scope withdrawal time: Not applicable Sedation minutes: 9 minutes Post-procedure Disposition: PACU
[2025-05-12 08:02] VITALS: BP 109/65; PULSE 81; RESP 14; O2SAT 99
[2025-05-12 08:07] VITALS: PULSE 78; RESP 14; O2SAT 98
[2025-05-12 08:10] VITALS: BP 110/66; PULSE 71; RESP 14; TEMP 36.1; O2SAT 99
== END 2025-05-12 08:29 | disposition home or self-care (01) ==
PROVIDERS: Referring Provider Surgery; Visit Provider Surgery
PROC: 0DJ08ZZ Inspection of Upper Intestinal Tract, Via Natural or Artificial Opening Endoscopic (ICD-10-PCS; CPT 43239; principal; 2025-05-12 07:45)
PROC: 0DJD8ZZ Inspection of Lower Intestinal Tract, Via Natural or Artificial Opening Endoscopic (ICD-10-PCS; CPT 45378; 2025-05-12 07:45)
DX: K92.1 Melena (principal); K21.9 Gastro-esophageal reflux disease without esophagitis; Z53.09 Procedure and treatment not carried out because of other contraindication; K29.50 Unspecified chronic gastritis without bleeding
CPT/HCPCS: 43239; 45378; J2704; J7120

== ENCOUNTER 2025-07-22 09:28 | Day surgery (SDC) | payer OTHER, SELFPAY ==
[2025-07-20 13:06] VITALS: BMI 22.4
[2025-07-22 10:07] VITALS: BP 119/82; PULSE 71; RESP 20; TEMP 36.4; O2SAT 98
[2025-07-22] MEDS: LACTATED RINGERS 1,000 ML 42 ML IV (10:11)
--- NOTE | 2025-07-22 10:48 | PM.HP.IH.1 ---
History of Present Illness History of Present Illness Date Patient Seen: 07/22/25 Time Patient Seen: 10:48 Chief complaint: Dx Colonoscopy w/poss bx Narrative: Glenn is a 29-year-old man who is here for colonoscopy for rectal bleeding. His previous attempt was aborted because of a poor prep. [facility] Medical History (Updated 07/20/25 @ 13:06 by Vannesa Dela Cruz, RN) Migraines Anxiety and depression Palpitations DDD (degenerative disc disease) PTSD (post-traumatic stress disorder) Acid reflux Social History Smoking Status: Former smoker alcohol intake: never Meds Home Medications and Allergies Home Medications ?Medication ?Instructions ?Recorded ?Confirmed ?Type atogepant 60 mg tablet (Qulipta) 60 mg PO DAILY 03/29/25 06/23/25 History meloxicam 15 mg tablet 15 mg PO DAILY 03/29/25 06/23/25 History pantoprazole 40 mg tablet,delayed 40 mg PO DAILY 03/29/25 06/23/25 History release propranolol 60 mg capsule,24 60 mg PO DAILY 03/29/25 06/23/25 History hr,extended release rizatriptan 10 mg tablet mg PO 03/29/25 06/23/25 History peg 3350-electrolytes 236 240 ml PO Q10M #4,000 mL 05/10/25 06/23/25 Rx gram-22.74 gram-6.74 gram-5.86 gram solution (Golytely) sodium,potassium,mag sulfates 17.5 See Rx Instructions PO .COMPLEX 06/30/25 Rx gram-3.13 gram-1.6 gram oral soln #354 mL (Suprep Bowel Prep Kit) tamsulosin 0.4 mg capsule 0.4 mg PO DAILY #90 caps 07/21/25 Rx Allergies Allergy/AdvReac Type Severity Reaction Status Date / Time No Known Drug Allergies Allergy Verified 05/12/25 07:47 Exam Vital Signs (past 8 hours): - 07/22/25 10:07 Temperature 97.6 F Pulse Rate 71 Respiratory Rate 20 Blood Pressure 119/82 Pulse Oximetry 98 Oxygen Delivery Method Room Air Oxygen Delivery Method Room Air Const General: healthy appearing Assessment & Plan Assessment and plan (1) Rectal bleeding: Status: Acute Plan Colonoscopy Time-Based Coding :: [TOTAL MINUTES] spent with patient and on the chart (including review of chart, obtaining history, exam, reviewing outside data, placing orders, documenting exam and treatment plan, and counseling patient) on [DATE]. 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
--- NOTE | 2025-07-22 11:11 | PM.OP.COLON ---
Operative Date/Time/Diagnoses Date of procedure: 07/22/25 Time of procedure: 11:11 Pre-op diagnosis: Rectal bleeding Post-op diagnosis: same Procedure & Clinicians Study performed: Colonoscopy Same procedure(s) as scheduled: Yes Surgeon: Bruce Guthrie Anesthesia Type: MAC +/- Procedure Notes Procedure in detail: Surgeon: Bruce Guthrie MD Anesthesia: Cici Krystian DO Procedure: The patient was brought to the endoscopy suite, placed in left lateral decubitus position. The patient was connected to monitoring devices. A time-out was performed. Sedation was administered. Once the patient was adequately sedated, a digital rectal exam was performed and was normal. The scope was then inserted and advanced to the cecum where the appendiceal orifice was identified and photographed. The scope was then slowly withdrawn over greater than 6 minutes. The mucosa was thoroughly inspected. No abnormalities were found. The scope was retroflexed in the rectum. The scope was straightened and removed. The patient was awakened and brought to recovery. Scope withdrawal time: 7 minutes Sedation time: 12 minutes Findings: Normal colon Estimated Blood Loss: 0 Complications: none Post-procedure Disposition: PACU
[2025-07-22 11:13] VITALS: BP 112/70; PULSE 78; RESP 16; O2SAT 99
[2025-07-22 11:17] VITALS: BP 118/64; PULSE 82; RESP 16; TEMP 36.7; O2SAT 100
[2025-07-22 11:22] VITALS: BP 108/56; PULSE 66; RESP 16; O2SAT 98
[2025-07-22 11:25] VITALS: BP 110/74; PULSE 72; RESP 16; TEMP 36.2; O2SAT 100
== END 2025-07-22 11:30 | disposition home or self-care (01) ==
PROVIDERS: Visit Provider Surgery
PROC: 0DJD8ZZ Inspection of Lower Intestinal Tract, Via Natural or Artificial Opening Endoscopic (ICD-10-PCS; CPT 45378; principal; 2025-07-22 10:45)
DX: K62.5 Hemorrhage of anus and rectum (principal); Z87.891 Personal history of nicotine dependence
CPT/HCPCS: 45378; J2704; J7120